=== PATIENT | female | born 1985 | race American Indian/Alaskan Native ===

== ENCOUNTER 2017-12-05 08:47 | Emergency (ER) | payer OTHER, SELFPAY ==
[2017-12-05 08:47] VITALS: BMI 43.0
[2017-12-05 08:59] VITALS: O2SAT 99
[2017-12-05] MEDS ORDERED: Lidocaine 5% Patch TD STA (09:24)
[2017-12-05] MEDS ORDERED: Lidocaine 5% Patch TD ONE (09:35)
[2017-12-05 10:26] VITALS: BP 133/83; PULSE 66; RESP 20; TEMP 98.4
--- NOTE | 2017-12-05 10:26 | C.PDOC ---
History Of Present Illness 32 y/o female presents to the ER complaining of lower back pain which has been present for the past 2 days. Patient states that she has pain mainly in the mid back in the lower lumbar region which radiates to the left buttock. Patient reports that the pain is dull and constant and rates it 8/10 on the pain scale.She notes that her left leg feels numb as well. She states that she has been having back pain intermittently since she had her last in 2016.Patient denies fever, chills, URI sx, chest pain, SOB, nausea, vomiting, and diarrhea. Time Seen by Provider: 12/05/17 09:15 Chief Complaint (Nursing): Back Pain History Per: Patient History/Exam Limitations: no limitations Onset/Duration Of Symptoms: Days Current Symptoms Are (Timing): Still Present Quality Of Discomfort: Dull Severity: Moderate Past Medical History Reviewed: Historical Data, Nursing Documentation, Vital Signs Vital Signs: Last Vital Signs Temp 98.4 F 12/05/17 10:26 Pulse 66 12/05/17 10:26 Resp 20 12/05/17 10:26 BP 133/83 12/05/17 10:26 Pulse Ox 99 12/05/17 10:44 - Medical History PMH: No Chronic Diseases Surgical History: - [facility] LOW CERVICAL (11/11/14) Family History: States: No Known Family Hx - Social History Hx Tobacco Use: No Hx Alcohol Use: No Hx Substance Use: No - Immunization History Hx Tetanus Toxoid Vaccination: No Hx Influenza Vaccination: No Hx Pneumococcal Vaccination: No Review Of Systems Except As Marked, All Systems Reviewed And Found Negative. Constitutional: Negative for: Fever, Chills Cardiovascular: Negative for: Chest Pain Respiratory: Negative for: Shortness of Breath Gastrointestinal: Negative for: Nausea, Vomiting, Diarrhea Musculoskeletal: Positive for: Back Pain (lower back pain) Physical Exam - Physical Exam Appears: Non-toxic, Other (mild painful distress) Skin: Normal Color, Warm Head: Atraumatic, Normacephalic Eye(s): bilateral: Normal Inspection Nose: Normal Oral Mucosa: Moist Neck: Supple Chest: Symmetrical Back: Normal Inspection, No CVA Tenderness Extremity: Normal ROM Neurological/Psych: Oriented x3, Normal Speech, Normal Motor, Normal Sensation ED Course And Treatment O2 Sat by Pulse Oximetry: 99 (RA) Pulse Ox Interpretation: Normal Medical Decision Making Medical Decision Making: Impression: Lower Back Pain Plan: --Flexeril PO --Motrin PO --Tylenol PO --Lidoderm Patch Disposition Counseled Patient/Family Regarding: Diagnosis, Need For Followup, Rx Given - Disposition Referrals: Maria Alejandra Sales MD [Staff Provider] - Navneet Jasso MD [Non-Staff] - Disposition: HOME/ ROUTINE Disposition Time: 10:23 Condition: STABLE Prescriptions: diaZEpam [Valium] 5 mg PO TID #12 tab Ibuprofen [Motrin] 1 tab PO TID PRN #30 tab PRN Reason: Pain Instructions: Low Back Pain (DC) Forms: General Discharge Instructions, [facility] (Malaysian), Work Excuse - POA Present On Arrival: None - Clinical Impression Clinical Impression: Low back pain - Scribe Statement The provider has reviewed the documentation as recorded by the Joseibe Nick Farmer Provider Attestation: All medical record entries made by the Scribe were at my direction and personally dictated by me. I have reviewed the chart and agree that the record accurately reflects my personal performance of the history, physical exam, medical decision making, and the department course for this patient. I have also personally directed, reviewed, and agree with the discharge instructions and disposition.
== END 2017-12-05 10:31 | disposition home or self-care (01) ==
LOC: C.ER 08:47
DX: M54.5 Low back pain (principal)

== ENCOUNTER 2018-12-22 11:35 | Emergency (ER) | payer OTHER ==
[2018-12-22 12:07] VITALS: BMI 43.9
[2018-12-22 14:51] LABS: SQUAMOUS EPITHIAL 22 /hpf (0-5); URINE BACTERIA OCC (<OCC); URINE BILIRUBIN NEGATIVE (NEGATIVE); URINE CLARITY Hazy (Clear); URINE COLOR Yellow (YELLOW); URINE GLUCOSE (UA) 1+ mg/dL (Normal); URINE LEUKOCYTE ESTERASE TRACE Leu/uL (Negative); URINE PROTEIN 1+ mg/dL (NEGATIVE)
[2018-12-22 14:54] LABS: URINE BLOOD TRACE (NEGATIVE)
--- NOTE | 2018-12-22 16:58 | US ---
Date of service: 12/22/2018 OB limited/biophysical profile Indication: 27+ weeks with vaginal bleeding Technique: Grayscale, color flow, and M-mode sonographic images of the single live intrauterine were obtained. Comparison: None available Findings: There is a single live intrauterine gestation. The fetus is in cephalic position. The placenta is anterior. There is no evidence of previa. There is a normal amount of amniotic fluid. The CHRISTIAN measures 24.0 cm. M-mode imaging demonstrates a heart rate to be 140 beats per min. Cervix length measures approximately 3.9 cm. Fetus has a composite sonographic age of 28 weeks 1 day. This calculation is based on the biparietal diameter, head circumference, abdominal circumference, and femur length. movements 2/2 breathing 2/2 tone 2/2 Amniotic fluid 2/2 Total score impression: 8/8 Estimated weight 1235 g. Impression: Biophysical profile of 8 out of 8. Single live intrauterine in cephalic position with a heart rate of 140 beats per min. The study was performed for emergent evaluation, and the whole anatomic survey of the fetus was not performed. This should be performed on an outpatient elective basis as clinically warranted.
--- NOTE | 2018-12-22 17:54 | OBDCSUM ---
Datetime: 12/22/2018 16:51 Discharged to, Provider: Home Follow up at, Provider: Dr Flores, [facility] Disch Instr Activity: Normal activity Disch Instr Diet: Regular Discharge Instructions, Provider: Routine instructions given Discharge Time: 12/22/2018 16:51 Follow up in weeks, Provider: Saturday, December 31, 2018 Disch Referrals: None Disch Activity Restrictions: No sexual activity; Nothing in vagina - [place], tampons, douche Discharge Comment, Provider: 33yo female at 27 weeks with IUP presenting with vaginal spotti ng and two painful lesions on labia. UA consistant with mild dehydration. US and biophysical profile reviewed No Placenta Previa, nl fluid With NST fetus recieved 10/10 on BPP. Speculum exam revealed no bleeding at all in vagina. Unremarkable SVE with no tenderness or masses and cervix closed and long. One external lesion was manually punctured and sebaceous material was expressed followed by minim al spotting. Second lesions appeared erythematous and possibly infectious. Patient and fetus is in stable condition. Patient is cleared for discharge home. Pt should take ten days of antibiotics- Keflex Rx given. Patient advised to take sitz baths BID as tolerated. Patient advised to follow up with Dr. Armenta within one week. Counseled to increase po water intake and pelvic rest. Discharge Diagnosis Prov Other: Gestational Hypertension Bilateral Painful Labial lesions Dehydration
[2018-12-22 21:24] VITALS: BP 123/77; PULSE 81; RESP 20; TEMP 97.9; O2SAT 98
--- NOTE | 2018-12-23 09:48 | OBHP ---
Datetime: 12/22/2018 14:14 IP Adm Impression: , intrauterine ; No Active Labor IP Admit Plan: Observation/Evaluation Admit Comment, IP Provider: CC: vaginal bleeding and painful bump on labia HPI: patient is a 33yo female currently at 27+ 5 weeks IUP with MARK 03/18/19 by US and per patient. Patient presenting with 3 days history of painful bump on her labia with associated spotting /bleeding when she wipes. Patient reports the appearance of a single "boil" and noticed blood on the toilet paper when she wiped. Since then she has noticed the appearance of another lesion on the other labia and has had another episode of spotting. Patient has had no dysuria or hematuria. Patient stat es no loss of fluid, no contractions, no abdominal pain or decreased movement. Patient is urbano garber seeing Dr. Flores for her care which she began at 20 weeks gestation. She has a history of gestational hypertension for which she was placed on labetalol 100mg BID two weeks ago. Patient denies any illness during current . Was last sexually active 3 months ago. Patient denies fe rodney, chills, headaches, SOB, chest pain, nausea, vomting, diarrhea, constipation. ObHx: at 27 weeks gestation. MARK 03/18/19. Four prior births were delivered by . F irst 2/2 non-reassuring heart tracing. Patient also had GDM and GHTN diagnosed in her first . GynHx: LMP 06/2018. Menarche at 12yo, periods last 7 days and are irregular, occuring q 2-3months. Patient denies dysmenorrhia and other associated sxs with periods. Last PAP smear was at first prenat al visit 7 weeks ago and was unremarkable. Denies history of STDs. PMH: gestational hypertension with current . FmHx: mother and father alive and well. SxHx: four prior c-sections Social: denies tobacco, etoh, drug use. Not currently sexually active. [facility] Patient state father of current gestation is not very involved. Allergies: NKDA Medications: vitamins, Labetalol 100mg BID P. E. As above Assesment/Plan 33yo female at 27wks, late to care, currently on labetalol for GHTN presenting with painful vaginal lesions and spotting x3 days. Currently normotensive and vitals WNL. ultrasound ordered UA ordered Previous admission records reviewed and Blood Type O+ noted Case discussed with Dr. Aashish Rocha - OMS III Pt seen and examined with OMS III Winsome Rocha and all of her findings and POC fully discussed w ith her and agreed on Pelvic Type - PN: Not Done Extremities - PN: Normal Abdomen - PN: Normal Back - PN: Normal Breast - PN: Not Done Lungs - PN: Normal Heart - PN: Normal Thyroid - PN: Not Done Neurologic - PN: Not Done HEENT - PN: Normal General - PN: Normal Presentation-Admit: Vertex FHR - Baseline A Provider: 140 Comments, ACOG Physical Exam: Fundal height 26cm Periumbilical tenderness Vaginal Exam: two 5mm pearly papules noted on labia majora at 2 and 7 o'clock. No active bleeding noted from vagina or from lesions at time of exam +1 non pitting edema bilateral legs Gestation - Est Wks by US: 27.0 IP Hx Assessment: No Care records available EGA AdmitDate IP: 27.5 Vital Signs Provider: Reviewed; Within Normal Limits IP Chief Complaint: Vaginal bleeding NICHD Variability Prov Fetus A: Moderate 6-25bpm NICHD Accel Fetus A IP Provider: 10X10 FHR Category Provider Fetus A: Category I NICHD Decel Fetus A IP Provider: None Genitourinary Exam: Abnormal DTRs - PN: Not Done
== END 2018-12-22 17:05 | disposition home or self-care (01) ==
LOC: C.EROB 11:35
DX: O46.92 Antepartum hemorrhage, unspecified, second trimester (principal); O16.2 Unspecified maternal hypertension, second trimester; O26.892 Other specified pregnancy related conditions, second trimester; N89.8 Other specified noninflammatory disorders of vagina; Z3A.27 27 weeks gestation of pregnancy